=== PATIENT | female | born 1930 | race Caucasian/White ===

== ENCOUNTER 2017-01-08 10:24 | Emergency (ER) | payer OTHER ==
[~2017-01-08] VITALS: Ht 165.1 cm; Wt 65.8 kg
[~2017-01-08 10:24] MED LIST: ACETAMINOPHEN650 M5 PO; ACIDOPHILUS1 EAC3 PO; ADULT LOW DOSE81 MG PO; ADVIL100 M2; AUGMENTIN 500-1 EACH PO; AUGMENTIN 875875 MG PO; BISACODYL SUPP10 MG RECTAL; BISOPROLOL FUMAR5 MG PO; CEFTIN 250 MG250 MG PO; CELEXA 20 MG TA20 MG PO; CIPRO250 M1 PO; CIPROFLOXACIN250 M2 PO; CIPROFLOXACIN500 M1 PO; COLACE100 MG PO; ENJUVIA0.3 MG PO; FLOMAX PO; FLORANEX PACKET1 GM PO; HYDROCODON-ACE1 EAC7 PO; IBUPROFEN 200200 M1 PO; IBUPROFEN 400400 M2 PO; LIPITOR10 MG PO; LISINOPRIL20 MG PO; LYRICA 50 MG50 MG PO; LYRICA100 MG PO; MACROBID 100 M100 M1 PO; METOPROLOL TART25 MG PO; NORCO 5-325 TA1 EACH PO; PEPCID AC20 M1 PO; PEPCID20 MG PO; PREDNISONE 20 M20 MG PO; PREDNISONE 5 MG5 MG PO; PRINZIDE 20-121 EACH PO; PRINZIDE 20-251 EACH PO; SENNA LAXATIVE1 EACH PO; SENNA LAXATIVE8.6 MG PO; SENNA8.6 MG PO; TESSALON PERLE100 MG PO; TYLENOL325 MG PO; VALIUM2 MG PO; VALIUM5 MG PO; VENTOLIN HFA 1818 GM INH; ZESTORETIC 20-1 EAC3 PO; ZOFRAN ODT4 MG DISSOLVE
== END 2017-01-08 12:14 | disposition home or self-care (01) ==
LOC: ER 10:24
DX: S90.32XA Contusion of left foot, initial encounter (principal); S90.31XA Contusion of right foot, initial encounter; Z98.890 Other specified postprocedural states; Z90.710 Acquired absence of both cervix and uterus; Z86.73 Personal history of transient ischemic attack (TIA), and cerebral infarction without residual deficits; I11.0 Hypertensive heart disease with heart failure; I50.9 Heart failure, unspecified; K21.9 Gastro-esophageal reflux disease without esophagitis; E78.5 Hyperlipidemia, unspecified; Z96.651 Presence of right artificial knee joint; G89.29 Other chronic pain; F32.9 Major depressive disorder, single episode, unspecified; F41.9 Anxiety disorder, unspecified; Z88.2 Allergy status to sulfonamides; Z88.8 Allergy status to other drugs, medicaments and biological substances; F10.99 Alcohol use, unspecified with unspecified alcohol-induced disorder; W18.09XA Striking against other object with subsequent fall, initial encounter; Y93.89 Activity, other specified; Y92.89 Other specified places as the place of occurrence of the external cause; Y99.8 Other external cause status

== ENCOUNTER → 2017-05-26 | Outpatient (CLI) | payer OTHER | LOC: RAD 13:05 | DX: N20.2 Calculus of kidney with calculus of ureter (principal) ==

== ENCOUNTER → 2018-01-13 | Outpatient (CLI) | payer OTHER | LOC: RAD 10:58 | DX: N20.2 Calculus of kidney with calculus of ureter (principal); N28.89 Other specified disorders of kidney and ureter; M47.896 Other spondylosis, lumbar region; M41.9 Scoliosis, unspecified ==

== ENCOUNTER → 2018-02-10 | Outpatient (CLI) | payer OTHER | LOC: MRI 05:59 | DX: M48.05 Spinal stenosis, thoracolumbar region (principal); M77.8 Other enthesopathies, not elsewhere classified; N28.89 Other specified disorders of kidney and ureter ==

== ENCOUNTER → 2018-07-29 | Outpatient (CLI) | payer OTHER | LOC: CAT 11:55 | DX: K44.9 Diaphragmatic hernia without obstruction or gangrene (principal); N20.0 Calculus of kidney; K76.0 Fatty (change of) liver, not elsewhere classified; I31.3 Pericardial effusion (noninflammatory); K76.89 Other specified diseases of liver; N13.30 Unspecified hydronephrosis; N12 Tubulo-interstitial nephritis, not specified as acute or chronic ==

== ENCOUNTER 2019-02-02 05:38 | Inpatient (IN) | payer OTHER ==
[2019-01-26 11:43] LABS: HEMATOCRIT 29.4 % (37.0-47.0); HEMOGLOBIN 9.2 gm/dL (12.0-15.0); MCH 23.8 pg (26.0-34.0); MCHC 31.2 g/dL (28.0-37.0); MCV 76.1 fL (80.0-100.0); RBC 3.86 mil/uL (4.20-5.00); RDW 19.7 % (10.5-14.5); WBC 5.7 thou/uL (4.0-11.0)
[2019-01-26 11:47] LABS: URINE BILIRUBIN NEGATIVE (Negative); URINE BLOOD NEGATIVE (Negative); URINE CLARITY SL CLOUDY; URINE COLOR YELLOW; URINE GLUCOSE-RANDOM* NEGATIVE (Negative); URINE KETONES NEGATIVE (Negative); URINE PROTEIN (DIPSTICK) NEGATIVE (Negative); URINE UROBILINOGEN 0.2 E.U./dl (0.2-1.0)
[2019-01-26 11:49] LABS: URINE LEUKOCYTES-REFLEX 3+ (Negative); URINE NITRITE-REFLEX POSITIVE (Negative)
[2019-01-26 11:51] LABS: ALBUMIN 3.4 g/dL (3.4-5.0); CALCIUM 9.6 mg/dL (8.5-10.1); CREATININE 0.7 mg/dL (0.6-1.0); POTASSIUM 4.2 mmol/L (3.5-5.1)
[2019-01-26 11:56] LABS: PROTIME 10.5 Seconds (9.3-11.4)
[2019-01-26 12:11] LABS: SQUAMOUS >10 Many /LPF (0-3)
[2019-01-26 12:12] LABS: BACTERIA-REFLEX >30 Many /HPF (None Seen); CASTS None Seen /LPF (None Seen); CRYSTALS None Seen /LPF (None Seen); URINE RBC None Seen /HPF (0-2); URINE WBC-REFLEX >25 Many /HPF (0-5)
[~2019-02-02] VITALS: Ht 165.1 cm; Wt 57.6 kg
--- NOTE | ~2019-02-02 | O ---
[facility] [place] [address] [address] OPERATIVE REPORT Name: RAE DAMON Room #: 150-3 ADM IN M.R.#: [id number] Admission: 02/02/19 ������������������ Attend Phys: Joey Juan MD Discharge: ������������������ Date of : 31 Report #: [id number] THIS REPORT FOR: //name// CC: Tremayne Juan DATE OF SERVICE: 02/02/2019 PREOPERATIVE DIAGNOSIS: Left knee osteoarthritis. POSTOPERATIVE DIAGNOSIS: Left knee osteoarthritis. PROCEDURE: Left total knee arthroplasty using NAVIO robotic fire assistant. SURGEON: Joey Juan MD. FLASK CARRIER: Holly Stout PA-C. INDICATIONS FOR FLASK CARRIER: Throughout the case extensive retraction and manipulation of the knee was required. This was afforded to me by my fire assistant. ANESTHESIA: LMA with an adductor canal block. IMPLANTS: [employer]hew size 6 narrow Legion cobalt chrome posterior stabilized femur, a size 4 tibia, size 11 highly constrained polyethylene, and size 32 patella. TOURNIQUET TIME: 61 minutes. ESTIMATED BLOOD LOSS: 25 mL. COMPLICATIONS: None. SPECIMENS: None. CONDITION UPON LEAVING THE OPERATING ROOM: Stable. INDICATION FOR PROCEDURE: The patient is an 89-year-old from female with severe left knee osteoarthritis. She had failed conservative measures for this and after discussion with her, she elected for left total knee arthroplasty. DESCRIPTION OF PROCEDURE: Risks, benefits, alternatives, complications were discussed in detail with the patient including but not limited to risk of anesthesia, risk of damage to nerves, arteries, blood vessels; risk for infection, bleeding, risk for continued knee pain, need for reoperation. Informed consent was obtained from the patient. Left knee was appropriately [facility] [address] [place] [address] OPERATIVE REPORT Name: RAE DAMON MARCH Room #: 150-3 ADM IN M.R.#: [id number] Admission: 02/02/19 ������������������ Attend Phys: Joey Juan MD Discharge: ������������������ Date of : 31 Report #: [id number] marked in the preoperative holding area. IV Ancef was given for preoperative antibiotics. She was brought to the operating room and placed in the supine position on the operating room table. LMA anesthesia was induced without complication. Tourniquet was placed on the left thigh. Left lower extremity was prepped and draped in normal sterile fashion. Timeout was performed properly identifying the patient and procedure as well as instrumentation. All in the operating room were in agreement. Left lower extremity was exsanguinated, tourniquet was inflated. Tourniquet time was 61 minutes. Standard midline approach to knee was made with 10 blade through the skin. Dissection was taken down sharply to the fascia and deep flaps were developed medially and laterally. A fresh 10 blade was used to make a medial parapatellar arthrotomy and there was severe tricompartmental osteoarthritis. ACL and PCL were removed sharply. Reference pins were placed in the femur and the tibia for the NAVIO system and the knee was digitally mapped using the [employer] robotic system. We sized the size 6 femur with a size 4 tibia and a size 11 polyethylene. After acceptance of the intraoperative plan, the distal femoral cut was made with a NAVIO bur. The 4-in-1 cutting block for a size 6 femur was placed and anterior, posterior and chamfer cuts were made. Knee was then hyperflexed and remainder of the meniscus were removed with Bovie cautery. Tibial resection guide was pinned in place using the NAVIO system and the tibial resection was made. Flexion and extension gaps were then checked and found to have good balance in flexion and extension both medially and laterally. Tibia was sized and found to be a size 4. The size 4 tibial trial was placed, pinned and punched. A size 6 femoral trial was placed and the box cut was made. This was then trialed with a size 11 polyethylene. Knee was taken through range of motion, found to be stable, found to have about 4 mm of laxity in full extension medially that did tighten up with flexion. It was felt that we could make up for this with a highly constrained insert. A 9 mm was taken off the posterior surface of the patella and a size 32 patellar trial button was placed. Knee was taken through range of motion, found to be stable, found to have good patellar tracking. Trial components were then removed. Bony ends were thoroughly irrigated with normal saline. A final size 4 tibia, size 6 Legion narrow cobalt chrome posterior stabilized femur, and a size 32 patella were cemented in place using standard cementation techniques. While the cement cured, a periarticular injection consisting of morphine, ropivacaine, epinephrine and Toradol was placed in the joint capsule. After the cement cured, tourniquet was deflated. Hemostasis was obtained with Bovie cautery. Final size 11 highly constrained polyethylene was placed. A gram of vancomycin was placed deep in the joint. Fascia was closed with 0 Vicryl, skin was closed with 2-0 Vicryl, 3-0 Monocryl, Dermabond and a YESICA dressing was applied. The patient tolerated this procedure well and went to the recovery room under the care of Anesthesia postoperatively. ��������������������������������������������� ���������������������������������������� By: ��������������������������������������������� 1434 1520 Joey Juan MD /pro
[~2019-02-02 05:38] MED LIST changes: +WOMEN'S 50 PLU1 EAC1 PO
[2019-02-02 10:42] VITALS: BP 158/57
[2019-02-02 16:11] VITALS: BP 135/46
[2019-02-02 17:00] VITALS: BP 140/58
--- NOTE | 2019-02-02 18:16 | NUR ---
Pt arrived to floor from recovery room at 1600 in stable condition.Pop assessment completed.Pt was drowsy but arousable.Ivf initiated and tolerated. Spouse at bs at present.Will continue to monitor.
[2019-02-02 21:50] VITALS: BP 122/51
[2019-02-03 05:00] VITALS: BP 121/57
[2019-02-03 05:12] LABS: HEMATOCRIT 24.4 % (37.0-47.0); HEMOGLOBIN 7.5 gm/dL (12.0-15.0); MCH 23.4 pg (26.0-34.0); MCHC 30.6 g/dL (28.0-37.0); MCV 76.6 fL (80.0-100.0); RBC 3.18 mil/uL (4.20-5.00); RDW 19.6 % (10.5-14.5); WBC 15.2 thou/uL (4.0-11.0)
--- NOTE | 2019-02-03 07:27 | NUR ---
PT ALERT AND ORIENTED.USING BEDPAN.VSS. ATE SOME JELLO. AFEBRILE.L KNEE WITH YESICA DRSG INTACT.
[2019-02-03 07:46] VITALS: BP 135/56
--- NOTE | 2019-02-03 12:47 | NUR ---
ASSESSMENT-PT LIVES AT HOME WITH HER SPOUSE. SHE PLAN TO GO TO [facility] FOR A SHORT REHAB STAY THEN DO OUTPT THERAPY AT [address]. SHE WILL FIND OUT THE NAME OF THE OUTPT FACILITY AND LET BOP KNOW SO THEY CAN ARANGE FOR HER. PT HAS BEEN USING A WC TO GET AROUND AND REQUIRES ASSIST TO TRANSFER TO AND FROM. PT HAS HAD HH THRU [facility] IN THE PAST AND SHE SAYS SHE DOES NOT WANT TO USE THEM AGAIN. PT HAS A CHAIR LIFT TO GET IN THE HOME THEN EVERYTHING ON ONE LEVEL. PT SAYS THEY ARE PLANNING ON PUTTING GRAB BARS IN. FOLLOWING TO ASSIST WITH DC PLANNING. SPOUSE AT BEDSIDE.
--- NOTE | 2019-02-03 14:37 | NUR ---
FAXED REFERRAL TO [facility] SPOKE WITH CHRIS IN ADM. SHE RECEIVED REFERRAL AND CAN ACCEPT PT. AT DC. THEY WILL BE ABLE TO ACCEPT PT. AFTER ONLY 2 MN SINCE SHE IS A BUNDLE PT. ANTICIPATE DC SUNDAY 02/04 OR SAT. 02/05. DCP TO FOLLOW.
--- NOTE | 2019-02-03 15:18 | NUR ---
Assessment completed.vss.Pt in bed for all meals.Good appetite.Dr Juan oil refinery process technician was here at noon.No new order noted.Pt in and out of bed for acivities with therapist.Medicated as needed for pain.Will continue to monitor.
[2019-02-03 15:42] VITALS: BP 113/42
[2019-02-03 20:05] VITALS: BP 130/55
--- NOTE | 2019-02-04 01:25 | NUR ---
L KNEE WITH YESICA DRSG INTACT. TEDS AND SCDS IN PLACE. PT C/O HEADACHE AND L KNEE PAIN, GIVEN HYDROCODON. PT MOSTLY JUST WANTS TO BE LEFT ALONE TO SLEEP.SHE HOPES TO DO BETTER WITH THERAPY TOMORROW.
[2019-02-04 03:00] VITALS: BP 128/61
[2019-02-04 04:56] LABS: RBC 2.87 mil/uL (4.20-5.00)
[2019-02-04 04:57] LABS: HEMATOCRIT 21.9 % (37.0-47.0); MCH 24.3 pg (26.0-34.0); MCHC 31.7 g/dL (28.0-37.0); MCV 76.4 fL (80.0-100.0); RDW 19.7 % (10.5-14.5); WBC 6.3 thou/uL (4.0-11.0)
[2019-02-04 08:01] VITALS: BP 143/54
--- NOTE | 2019-02-04 08:07 | NUR ---
ASSESMENT COMPLETED. VSS. A/O. ANXIOUS. C/O PAIN- MEDS GIVEN ORDERED. NO NOTED SOA. NO NV. VOIDS PER BEDPAN. TURNS SELF WELL IN BED. YESICA CDI. BED ALARM ON. AT BEDSIDE. WILL CONT. TO MONITOR.
[2019-02-04] MEDS ORDERED: TRI-BUFFERED A325 M1 PO (12:14)
[2019-02-04] MEDS ORDERED: NEURONTIN 300300 M1 PO (12:14)
--- NOTE | 2019-02-04 12:34 | NUR ---
PT. [facility] FAX DC ORDERS TO [phone] AND CALL REPORT TO [phone] AND ASK FOR STUART SHE WILL SET UP TRANSPORT ALSO.
--- NOTE | 2019-02-04 12:56 | NUR ---
Following for d/c planning needs. Pt to be d/c on Thursday to [facility]. Pt and spouse in agreement with plan. search planner updated facility. Patient choice letter signed and placed on chart.
[2019-02-04 15:38] VITALS: BP 142/61
--- NOTE | 2019-02-04 18:29 | NUR ---
NO CHANGE SINCE AM ASSESMENT. PLANS TO DC [facility] TO SNF.
[2019-02-04 19:36] VITALS: BP 143/47
--- NOTE | 2019-02-05 01:38 | NUR ---
PT IS ALERT,SOMETIMES GETS CONFUSED AND FORGETFUL.ASKING FOR BEDPAN-VOIDING OKAY. YESICA DRSG INTACT TO L KNEE.PT C/O-GETTING HYDROCODONE.PLAN FOR D/C TO REHAB TODAY.
[2019-02-05 04:27] LABS: HEMOGLOBIN 6.9 gm/dL (12.0-15.0); MCH 23.9 pg (26.0-34.0)
[2019-02-05 04:29] LABS: HEMATOCRIT 21.9 % (37.0-47.0); MCHC 31.6 g/dL (28.0-37.0); MCV 75.8 fL (80.0-100.0); RBC 2.9 mil/uL (4.20-5.00); RDW 19.4 % (10.5-14.5); WBC 6.9 thou/uL (4.0-11.0)
[2019-02-05 05:09] VITALS: BP 147/47
[2019-02-05] MEDS ORDERED: IRON325 PO (08:17)
--- NOTE | 2019-02-05 08:18 | NUR ---
ASSESMENT COMPLETED. VSS. A/O. FORGETFUL. PAIN MANAGED BY MEDS ORDERED. NO NOTED SOA. NO NV. PT RESTING IN BED. NOTED HGB. DR. UPTON HERE- ORDERS FOR IRON OBTAINED. PT TO DC TO SNF THIS AFTERNOON. WILL CONT. TO MONITOR.
[2019-02-05 08:26] VITALS: BP 147/54
--- NOTE | 2019-02-05 13:06 | NUR ---
REPORT CALLED IN TO FACILITY. PT EXPECTED TO DC AT 1600.
== END 2019-02-05 18:00 | DRG 470 ==
LOC: TBA 05:38 → 4E 05:38 → PRE 05:48 → 4E 16:07
PROVIDERS: ADMIT Orthopaedic Surgery
DX: M17.12 Unilateral primary osteoarthritis, left knee (principal); Z88.6 Allergy status to analgesic agent; Z88.2 Allergy status to sulfonamides; Z88.8 Allergy status to other drugs, medicaments and biological substances; Z79.82 Long term (current) use of aspirin; Z79.899 Other long term (current) drug therapy
CPT/HCPCS: 10783; 50010; 50101; 50415; 50954; 51130; 51225; 51771; 53000; 53078; 53364; 54118; 56527; 56528; 57095; 57103; 57110; 57127; 57180; 62110; 62900; 70005

== ENCOUNTER → 2019-05-24 | Outpatient (CLI) | payer OTHER ==
[~2019-05-24] MED LIST changes: +IRON325 PO; +NEURONTIN 300300 M1 PO; +TRI-BUFFERED A325 M1 PO
[2019-05-24 11:27] LABS: HEMATOCRIT 29.1 % (37.0-47.0); HEMOGLOBIN 9.1 gm/dL (12.0-15.0); MCH 22.5 pg (26.0-34.0); MCHC 31.4 g/dL (28.0-37.0); MCV 71.6 fL (80.0-100.0); RBC 4.07 mil/uL (4.20-5.00); RDW 21.2 % (10.5-14.5); WBC 4.5 thou/uL (4.0-11.0)
[2019-05-24 11:44] LABS: ALBUMIN 3.4 g/dL (3.4-5.0); CALCIUM 9.6 mg/dL (8.5-10.1); CREATININE 0.7 mg/dL (0.6-1.0); POTASSIUM 3.9 mmol/L (3.5-5.1); TOTAL BILIRUBIN 0.7 mg/dL (<0.1-1.0); TOTAL PROTEIN 6.3 g/dL (6.4-8.2)
== END ==
LOC: LAB 10:37
PROVIDERS: Internal Medicine Geriatric Medicine
DX: M25.562 Pain in left knee (principal); Z96.652 Presence of left artificial knee joint

== ENCOUNTER 2019-09-18 00:42 | Emergency (ER) | payer OTHER ==
[~2019-09-18] VITALS: Ht 165.1 cm; Wt 65.8 kg
[2019-09-18] MEDS ORDERED: HYDROCODON-ACE1 EAC7 PO (00:44)
[2019-09-18] MEDS ORDERED: LIPITOR 40 MG T40 M1 PO (00:44)
[2019-09-18] MEDS ORDERED: NORVASC5 MG PO (00:45)
[2019-09-18 03:35] LABS: HEMOGLOBIN 6.5 gm/dL (12.0-15.0); WBC 3.6 thou/uL (4.0-11.0)
[2019-09-18 03:36] LABS: HEMATOCRIT 22.4 % (37.0-47.0); MCH 20.9 pg (26.0-34.0); MCV 72.1 fL (80.0-100.0); PLATELET COUNT 333 thou/uL (150-400); RBC 3.11 mil/uL (4.20-5.00); RDW 19.3 % (10.5-14.5)
[2019-09-18 03:39] LABS: CALCIUM 9.1 mg/dL (8.5-10.1); CREATININE 0.8 mg/dL (0.6-1.0); POTASSIUM 3.7 mmol/L (3.5-5.1)
[2019-09-18 04:09] LABS: ABSOLUTE NEUTROPHILS 1.9 thou/uL (1.4-8.2); ANISOCYTOSIS 2+; HYPOCHROMASIA 3+; METAMYELOCYTES 1 %; MICROCYTES 1+
[2019-09-18 04:10] LABS: LARGE PLATELETS OCCASIONAL
[2019-09-18 05:57] LABS: URINE BILIRUBIN NEGATIVE (Negative); URINE BLOOD NEGATIVE (Negative); URINE CLARITY CLEAR; URINE COLOR YELLOW; URINE GLUCOSE-RANDOM* NEGATIVE (Negative); URINE KETONES TRACE (Negative); URINE NITRITE-REFLEX NEGATIVE (Negative); URINE PROTEIN (DIPSTICK) NEGATIVE (Negative); URINE UROBILINOGEN 0.2 E.U./dl (0.2-1.0)
[2019-09-18 06:00] LABS: URINE LEUKOCYTES-REFLEX 2+ (Negative)
[2019-09-18 06:29] LABS: CASTS None Seen /LPF (None Seen); SQUAMOUS >10 Many /LPF (0-3); URINE WBC-REFLEX 6-15 Few /HPF (0-5)
[2019-09-18 06:30] LABS: AMORPHOUS URATES Few /LPF (None Seen); BACTERIA-REFLEX >30 Many /HPF (None Seen); CALCIUM OXALATE 4-10 Moderate /LPF (None Seen); URINE RBC None Seen /HPF (0-2)
[2019-09-18 08:24] VITALS: BP 150/51
== END 2019-09-18 07:40 | disposition home or self-care (01) ==
LOC: ER 00:42
PROVIDERS: Emergency Medicine
DX: S01.81XA Laceration without foreign body of other part of head, initial encounter (principal); I11.0 Hypertensive heart disease with heart failure; I50.9 Heart failure, unspecified; K21.9 Gastro-esophageal reflux disease without esophagitis; Z88.2 Allergy status to sulfonamides; Z88.5 Allergy status to narcotic agent; Z88.8 Allergy status to other drugs, medicaments and biological substances; Z79.899 Other long term (current) drug therapy; Z90.89 Acquired absence of other organs; Z90.710 Acquired absence of both cervix and uterus; Z98.890 Other specified postprocedural states; Z86.73 Personal history of transient ischemic attack (TIA), and cerebral infarction without residual deficits; Z96.651 Presence of right artificial knee joint; Z87.442 Personal history of urinary calculi; W06.XXXA Fall from bed, initial encounter; Y93.89 Activity, other specified; Y92.89 Other specified places as the place of occurrence of the external cause; Y99.9 Unspecified external cause status

== ENCOUNTER 2019-09-22 17:23 | Inpatient (IN) | payer OTHER ==
[~2019-09-22] VITALS: Ht 165.1 cm; Wt 68.5 kg
[~2019-09-22 17:23] MED LIST changes: +LIPITOR 40 MG T40 M1 PO; +NORVASC5 MG PO
[2019-09-22 18:49] VITALS: BP 143/62
[2019-09-22 19:26] LABS: HEMOGLOBIN 6.4 gm/dL (12.0-15.0)
[2019-09-22 21:33] VITALS: BP 160/58; BP 166/65
[2019-09-22 22:21] VITALS: BP 141/58
[2019-09-22 23:22] VITALS: BP 182/81
[2019-09-23 01:00] VITALS: BP 162/70; BP 162/74; BP 170/81
[2019-09-23 08:50] VITALS: BP 174/78
[2019-09-23 09:10] LABS: HEMATOCRIT 27.5 % (37.0-47.0)
[2019-09-23 09:17] LABS: HEMOGLOBIN 8.4 gm/dL (12.0-15.0)
[2019-09-23 15:42] VITALS: BP 151/81
[2019-09-23 16:23] LABS: HEMATOCRIT 28.9 % (37.0-47.0); HEMOGLOBIN 8.9 gm/dL (12.0-15.0); MCH 23.3 pg (26.0-34.0); MCHC 30.9 g/dL (28.0-37.0); MCV 75.3 fL (80.0-100.0); RBC 3.84 mil/uL (4.20-5.00); RDW 21.6 % (10.5-14.5); WBC 5.6 thou/uL (4.0-11.0)
[2019-09-23 16:42] LABS: % SATURATION 7 % (20-39); IRON 25 ug/dL (50-170); TIBC 350 ug/dL (250-450)
[2019-09-23 20:22] VITALS: BP 165/76
[2019-09-24 07:00] VITALS: BP 161/76
--- NOTE | 2019-09-24 08:03 | H ---
[facility] [place] [address] HISTORY AND PHYSICAL Name: RAE DAMON Room #: 403-P ADM IN M.R.#: [id number] Admission: 09/22/19 Attend Phys: Judi Barr Discharge: Date of : 31 Report #: [id number] THIS REPORT FOR: //name// CC: Tremayne Patino DATE OF SERVICE: 09/22/2019 CHIEF COMPLAINT: Weakness. HISTORY OF PRESENT ILLNESS: The patient is an 89-year-old female who was admitted from the office for evaluation of anemia. She apparently slid and fell out of her bed earlier this week and sustained a laceration to her lower lip. She was seen in the Emergency Room on 09/18/2019. She was discharged home. She was noted to have a hemoglobin of 6.5 at that time. She had a followup in the office yesterday and was admitted for evaluation of symptomatic anemia. PAST MEDICAL HISTORY: Osteoarthritis. She had a left total knee replacement in January of this year, hypertension. PAST SURGICAL HISTORY: As above. FAMILY HISTORY: Noncontributory. SOCIAL HISTORY: She is and lives with her at home. No chronic alcohol or tobacco use. ALLERGIES: SULFA, OXYCODONE, ATROPINE, DIPHENOXYLATE. MEDICATIONS: Lipitor, Norvasc, diazepam, Colace, Pepcid. REVIEW OF SYSTEMS: She denies headache, chest pain, shortness of breath, abdominal pain, nausea, vomiting, diarrhea, constipation, dysuria, syncope. She complains of trouble sleeping. OBJECTIVE: VITAL SIGNS: Temperature 36.8, pulse 56, respirations 18, blood pressure 174/78, O2 sat 96% on room air. GENERAL: She is awake and alert, in no distress. HEAD AND NECK: Unremarkable. LUNGS: Clear. HEART: Regular. ABDOMEN: Soft, normoactive bowel sounds. EXTREMITIES: No edema. NEUROLOGIC: Motor strength 4/5 throughout. LABORATORY DATA: Presenting hemoglobin was 6.4, post two-unit blood [facility] [address] [place] [address] HISTORY AND PHYSICAL Name: RAE DAMON Room #: 403-P ADM IN M.R.#: [id number] Admission: 09/22/19 Attend Phys: Judi Barr Discharge: Date of : 31 Report #: [id number] transfusion, now 8.4. ASSESSMENT: 1. Symptomatic microcytic anemia. 2. Hypertension. 3. Osteoarthritis of the knees. 4. History of left knee replacement in January of this year. PLAN: She has already received 2 units. Additional iron studies will be ordered and she may benefit from some IV iron infusion, hemoccult stool and I will ask the GI service to see her for consideration of endoscopy. <ELECTRONICALLY SIGNED> By: Anthony Chang MD 09/24/19 0803 1144 1156 Anthony Chang MD /nt
[2019-09-24 08:59] LABS: HEMATOCRIT 28.7 % (37.0-47.0); HEMOGLOBIN 8.9 gm/dL (12.0-15.0); MCH 23.3 pg (26.0-34.0); MCV 75.1 fL (80.0-100.0); RBC 3.82 mil/uL (4.20-5.00); RDW 21.4 % (10.5-14.5); WBC 4.7 thou/uL (4.0-11.0)
[2019-09-24 09:14] LABS: CALCIUM 9.1 mg/dL (8.5-10.1); CREATININE 0.7 mg/dL (0.6-1.0); POTASSIUM 3.5 mmol/L (3.5-5.1)
[2019-09-24 16:00] VITALS: BP 191/90
[2019-09-24 20:20] VITALS: BP 163/63
[2019-09-25 20:04] VITALS: BP 142/66
[2019-09-26] VITALS (8 sets, daily range): BP systolic 124–190; BP diastolic 56–81
[2019-09-26 05:48] LABS: HEMATOCRIT 29.4 % (37.0-47.0); HEMOGLOBIN 9.1 gm/dL (12.0-15.0); MCHC 30.8 g/dL (28.0-37.0); MCV 74.9 fL (80.0-100.0); RBC 3.93 mil/uL (4.20-5.00); RDW 21.8 % (10.5-14.5); WBC 5.7 thou/uL (4.0-11.0)
[2019-09-27 09:36] VITALS: BP 132/76
[2019-09-27] MEDS ORDERED: PANTOPRAZOLE SO40 M1 PO (12:32)
[2019-09-27 13:16] VITALS: BP 132/76
--- NOTE | 2019-09-27 13:58 | P ---
[facility] [place] [address] PROCEDURE REPORT Name: RAE DAMON Room #: 403-P ADM IN M.R.#: [id number] Admission: 09/22/19 Attend Phys: Judi Barr Discharge: Date of : 31 Report #: [id number] THIS REPORT FOR: //name// CC: Jose G Patino DATE OF SERVICE: 09/26/2019 PROCEDURE PERFORMED: Colonoscopy with biopsies. HISTORY OF PRESENT ILLNESS: The patient is an 89-year-old female with recent fall at home, was noted to be significantly anemic with a hemoglobin in the 6 range. She is now undergone transfusion. She does have a history of NSAID use. Upper endoscopy was just performed by myself, which showed several gastric ulcers, nonbleeding duodenal ulcers as well as esophagitis. No evidence of blood. Plan is for colonoscopy. DESCRIPTION OF PROCEDURE: The risks and benefits of the procedure were explained to the patient, those risks including but not limited to bleeding, perforation, the risk of sedation. She understood these risks and gave informed consent. Sedation was given using propofol per anesthesia. Next, a digital rectal exam was initially performed, which was normal. Next, using a standard Olympus colonoscope, the scope was placed in the patient's anus and advanced under direct vision to the cecum. The overall prep was good. The cecum and ileocecal valve were normal in appearance. In the proximal ascending colon, a 5 mm sessile polyp was noted. This was removed with cold forceps, otherwise normal. The transverse and descending colon were normal. Multiple diverticula were noted in the sigmoid colon, no evidence of inflammation or bleeding. The rectal mucosa was normal. On retroflexion, small nonbleeding internal hemorrhoids were noted. The scope was then withdrawn and the procedure terminated. The patient tolerated the procedure well. IMPRESSION: 1. Small colonic polyp. 2. Sigmoid diverticulosis. 3. Internal hemorrhoids. 4. Otherwise, normal colonoscopy. RECOMMENDATIONS: 1. Await biopsy results. 2. The patient's anemia may be secondary to gastric and duodenal ulcers as described above. Would recommend daily PPI therapy and continue to monitor hemoglobin. There was no evidence of active bleeding on EGD or colonoscopy today. Okay to discharge to home. [facility] [address] [place] [address] PROCEDURE REPORT Name: RAE DAMON Room #: 403-P ADM IN M.R.#: [id number] Admission: 09/22/19 Attend Phys: Judi Barr Discharge: Date of : 31 Report #: [id number] Thank you for allowing me to participate in her care. <ELECTRONICALLY SIGNED> By: Pradip Jauregui MD 09/27/19 1358 1314 [id number] Pradip Jauregui MD /nt
--- NOTE | 2019-09-27 13:58 | P ---
[facility] [place] [address] PROCEDURE REPORT Name: NELSONRAE Room #: 403-P ADM IN M.R.#: [id number] Admission: 09/22/19 Attend Phys: Judi Barr Discharge: Date of : 31 Report #: [id number] THIS REPORT FOR: //name// CC: Jose G Patino DATE OF SERVICE: 09/26/2019 PROCEDURE PERFORMED: Upper endoscopy with biopsies. HISTORY OF PRESENT ILLNESS: The patient is an 89-year-old female with a history of anemia who was admitted for a fall at home, who was noted to have hemoglobin of 6.5, been feeling weak in general recently. She does take NSAIDs. Denies any melena or bright red blood per rectum. Plan is for EGD and colonoscopy. She was transfused. Her hemoglobin now is 9.1. DESCRIPTION OF PROCEDURE: The risks and benefits of the procedure were explained to the patient, those risks including, but not limited to bleeding, perforation and the risk of sedation. She understood these risks and gave informed consent. Sedation was given using propofol per anesthesia. Next, using a standard Olympus upper endoscope, the scope was placed in the patient's mouth and advanced under direct vision through the esophagus, stomach and into the second portion of the duodenum. The upper and mid esophagus was normal in appearance. In the distal esophagus at the GE junction, grade B erosive esophagitis was noted. No evidence of bleeding. Upon entering the stomach, a large hiatal hernia was noted. There were several gastric erosions and a few small clean white based ulcers within the hiatal hernia in the gastric body. No evidence of bleeding. Biopsies were obtained. A mild gastritis was noted in the antrum. The pylorus was normal and patent. In the duodenal bulb, two small clean white based ulcers were noted. Also, no evidence of bleeding. The first and second portion of the duodenum were normal. Biopsies were obtained to rule out celiac sprue. The scope was then withdrawn and the procedure terminated. The patient tolerated the procedure well. IMPRESSION: 1. Several gastric erosions and ulcers. No active bleeding at this time. Possible source of recent anemia. 2. Hiatal hernia. 3. Grade B erosive esophagitis. 4. Duodenal ulcers as described above. RECOMMENDATIONS: 1. Await biopsy results. 2. Recommend continuing to hold NSAIDs and will switch from Pepcid to Protonix. [facility] [address] [place] [address] PROCEDURE REPORT Name: NELSONRAE Room #: 403-P ADM IN M.R.#: [id number] Admission: 09/22/19 Attend Phys: Judi Barr Discharge: Date of : 31 Report #: [id number] Thank you for allowing me to participate in her care. <ELECTRONICALLY SIGNED> By: Pradip Jauregui MD 09/27/19 1358 1249 [id number] Pradip Jauregui MD /pro
--- NOTE | 2019-09-29 10:00 | D ---
[facility] [place] [address] DISCHARGE SUMMARY Name: RAE DAMON Room #: 403-P [facility] IN M.R.#: [id number] Admission: 09/22/19 Attend Phys: Judi Barr Discharge: 09/27/19 Date of : 31 Report #: [id number] THIS REPORT FOR: //name// CC: Tremayne Patino FINAL DIAGNOSES: 1. Microcytic anemia. 2. Gastric ulcer. 3. Hypertension. PROCEDURES: 1. Two unit blood transfusion. 2. EGD. 3. Colonoscopy. HOSPITAL COURSE: The patient was admitted with general weakness and signs of symptomatic anemia with hemoglobin around 6. She received 2 units of blood along with iron infusions. GI service assessed her and scheduled and performed an EGD and colonoscopy. Please see those dictated reports. Generally, she was found to have nonbleeding gastric ulcers, which are thought to be the source of her microcytic anemia. The plan was to switch her to proton pump inhibitor. PHYSICAL EXAMINATION: GENERAL: On the day of discharge, she was awake and alert. VITAL SIGNS: Stable vital signs. LUNGS: Clear. HEART: Regular. ABDOMEN: Soft, normoactive bowel sounds. EXTREMITIES: No edema. DISPOSITION: She is discharged to home with diet and activity as tolerated. No aspirin or NSAID products. She will switch from Pepcid to Protonix 40 mg a day for [address] Patino in a couple of weeks. She has a few sutures in the lower lip due to a fall at home, sutured in the ER, which will be removed in the office. <ELECTRONICALLY SIGNED> By: Anthony Chang MD 09/29/19 1000 1234 1253 Anthony Chang MD /nt
--- NOTE | 2019-09-29 10:07 | PATH ---
[facility] [place] [address] [address] [place] [address] PATHOLOGY RPT PROCEDURE Name: LILIAN DAMON Room #: 403-P DIS IN M.R.#: [id number] Admission: 09/22/19 Date of : 31 Discharge: 09/27/19 Report #: [id number] Path Case #: [id number] [facility] Accession Number: [id number] . 01 Material submitted: . PART A: duodenum - BIOPSY DUODENUM R/O CELIAC SPRUE, HX ANEMIA PART B: stomach - BIOPSY GASTRITIS R/O H PYLORI PART C: colon - BIOPSY POLYP AT ASCENDING COLON. Modifiers: ascending . 01 Clinical history: . Pre-op diagnosis: Anemia Post-op diagnosis: Gastric ulcers, duodenal ulcers, hiatal hernia, esophagitis, colon polyp, diverticulosis A. R/O celiac sprue, history of anemia B. R/O H. pylori . 02 Diagnosis: A. Small bowel mucosa, duodenum, endoscopic biopsy: - No significant diagnostic abnormalities present. - Negative for villous blunting or increase in intraepithelial lymphocytes. . B. Gastric mucosa, gastritis rule out H. pylori, endoscopic biopsy: - Mild chronic inflammation. - Negative for intestinal metaplasia or atrophy. - Negative for Helicobacter pylori (properly controlled immunohistochemical stain performed). . C. Polyp, ascending colon, endoscopic biopsy: - Tubular adenoma. - Negative for high grade dysplasia. (IUV/db; 09/28/2019) LBQ 09/28/2019 1516 Local . 02 Electronically signed: . Mona Abrams MD, Pathologist NPI- [id number] . 01 Gross description: . A. The specimen is received in formalin, labeled "Lilian Damon, biopsy duodenum, R/O celiac sprue, history of anemia". Received are three segments of pale zhong soft tissue ranging in size from 0.3 to 0.5 cm in maximum dimensions. The specimen is submitted entirely in cassette A1. . B. The specimen is received in formalin, labeled "Lilian Damon, biopsy gastritis, R/O H. pylori". Received are three segments of pale zhong soft tissue ranging in size from 0.3 to 0.6 cm in maximum dimensions. The [address] [address] PATHOLOGY RPT PROCEDURE Name: NELSONLILIAN Room #: 403-P DIS IN M.R.#: [id number] Admission: 09/22/19 Date of : 31 Discharge: 09/27/19 Report #: [id number] Path Case #: [id number] specimen is submitted entirely in cassette B1. . C. The specimen is received in formalin, labeled "Lilian Damon, biopsy polyp at ascending colon". Received are three segments of pale zhong soft tissue ranging in size from 0.2 to 0.3 cm in maximum dimensions. The specimen is submitted entirely in cassette C1. (CAA; 09/27/2019) QAC/QAC 09/27/2019 0955 Local . 02 Pathologist provided ICD-10: K29.50, D12.2 . 02 CPT . 323829, 713572, 160917, [id number] Specimen Comment: A courtesy copy of this report has been sent to [phone], [phone] Specimen Comment: [id number] Specimen Comment: Report sent to and Specimen Comment: A duplicate report has been generated due to demographic updates. Performed at: [address] [facility], [place], [place] [id number] MD Demarcus Hi MD Phone: [phone] Performed at: [address] [id number] MD Mona Abrams MD Phone: [phone]
== END 2019-09-27 13:45 | disposition home or self-care (01) | DRG 380 ==
LOC: 4W 17:23 → 4N 09-23 19:09 → ENTRNSPT 09-27 13:24 → EDTRNSPTSTS 09-27 13:27 → 4N 09-27 13:45
PROVIDERS: Internal Medicine Geriatric Medicine; Nurse Practitioner; ADMIT Internal Medicine
PROC: 30233N1 Transfusion of Nonautologous Red Blood Cells into Peripheral Vein, Percutaneous Approach (ICD-10-PCS; principal; 2019-09-22)
PROC: 0DB68ZX Excision of Stomach, Via Natural or Artificial Opening Endoscopic, Diagnostic (ICD-10-PCS; 2019-09-26)
PROC: 0DB98ZX Excision of Duodenum, Via Natural or Artificial Opening Endoscopic, Diagnostic (ICD-10-PCS; 2019-09-26)
PROC: 0DBK8ZZ Excision of Ascending Colon, Via Natural or Artificial Opening Endoscopic (ICD-10-PCS; 2019-09-26)
DX: K22.10 Ulcer of esophagus without bleeding (principal); G93.41 Metabolic encephalopathy; N39.0 Urinary tract infection, site not specified; K25.9 Gastric ulcer, unspecified as acute or chronic, without hemorrhage or perforation; D50.9 Iron deficiency anemia, unspecified; K26.9 Duodenal ulcer, unspecified as acute or chronic, without hemorrhage or perforation; I10 Essential (primary) hypertension; Z96.652 Presence of left artificial knee joint; M17.0 Bilateral primary osteoarthritis of knee; K44.9 Diaphragmatic hernia without obstruction or gangrene; K57.30 Diverticulosis of large intestine without perforation or abscess without bleeding; K64.8 Other hemorrhoids; K63.5 Polyp of colon; B96.20 Unspecified Escherichia coli [E. coli] as the cause of diseases classified elsewhere; Z72.89 Other problems related to lifestyle; Z80.0 Family history of malignant neoplasm of digestive organs; Z88.6 Allergy status to analgesic agent; Z88.2 Allergy status to sulfonamides; Z88.8 Allergy status to other drugs, medicaments and biological substances; Z79.1 Long term (current) use of non-steroidal anti-inflammatories (NSAID); Z90.710 Acquired absence of both cervix and uterus
CPT/HCPCS: 10047; 10790; 62110; 62900; 70005

== ENCOUNTER 2019-09-29 16:04 | Inpatient (IN) | payer OTHER ==
[~2019-09-29] VITALS: Ht 165.1 cm; Wt 63.5 kg
--- NOTE | ~2019-09-29 | H ---
[facility] [place] [address] [address] HISTORY AND PHYSICAL Name: RAE DAMON Room #: 404-P ADM IN M.R.#: [id number] Admission: 09/29/19 Attend Phys: Judi Barr Discharge: Date of : 32 Report #: [id number] THIS REPORT FOR: //name// CC: Tremayne Patino DATE OF SERVICE: 09/29/2019 CHIEF COMPLAINT: Pain and swelling in the right arm. HISTORY OF PRESENT ILLNESS: The patient is an 89-year-old female admitted to the Emergency Room with increasing pain and swelling of the right arm. She was hospitalized about a week ago for symptomatic anemia. She received 2-unit blood transfusion along with iron infusions and underwent EGD and colonoscopy Thursday and then was discharged home on Thursday. At home she noted increasing pain, swelling and redness of the right forearm. She came to the Emergency Room and diagnosed with cellulitis. Doppler study is negative for DVT. PAST MEDICAL HISTORY: Hypertension, degenerative arthritis. She had a right knee replacement in January of this year, microcytic anemia due to gastrointestinal bleed from gastric ulcer. PAST SURGICAL HISTORY: As above. FAMILY HISTORY: Noncontributory. SOCIAL HISTORY: She lives at home with her . No chronic alcohol or tobacco use. ALLERGIES: SULFA, OXYCODONE, ATROPINE, LOMOTIL. MEDICATIONS: Lipitor, amlodipine, Tylenol, Protonix. REVIEW OF SYSTEMS: Denies headache, chest pain, shortness of breath, abdominal pain, nausea, vomiting, diarrhea, constipation, dysuria, syncope. OBJECTIVE: VITAL SIGNS: Temperature 36.9, pulse 50, respirations 20, blood pressure 132/58, O2 sat 98% on room air. GENERAL: She is awake and alert, in no distress. LUNGS: Clear. HEART: Regular. ABDOMEN: Soft, normoactive bowel sounds. EXTREMITIES: There is 1+ edema of the right arm. It is tender. There is some faint erythema. LABORATORY DATA: Doppler ultrasound of the right arm was negative. White count [facility] [address] [place] [address] HISTORY AND PHYSICAL Name: RAE DAMON Room #: 404-P ADM IN M.R.#: [id number] Admission: 09/29/19 Attend Phys: Judi Barr Discharge: Date of : 32 Report #: [id number] is normal, hemoglobin is up to 10. Chemistry is negative. ASSESSMENT: 1. Cellulitis of the right upper extremity. 2. Hypertension. 3. Microcytic anemia. 4. Recent diagnosis of gastric ulcer. PLAN: I will continue with IV antibiotics. Once her pain and swelling have diminished, she can be discharged home with oral Keflex. Her hemoglobin is improved and she remains on proton pump inhibitor for recent diagnosis of gastric ulcer. By: [id number] Anthony Chang MD /nt
--- NOTE | ~2019-09-29 | D ---
[facility] [place] [address] DISCHARGE SUMMARY Name: RAE DAMON Room #: 404-P [facility] IN M.R.#: [id number] Admission: 09/29/19 Attend Phys: Judi Barr Discharge: 10/02/19 Date of : 32 Report #: [id number] THIS REPORT FOR: //name// CC: Tremayne Patino DATE OF SERVICE: 10/02/2019 ATTENDING PHYSICIAN: Dr. Tremayne Patino. CHIEF COMPLAINT: Right arm swelling. HISTORY OF PRESENT ILLNESS: The patient is an 89-year-old lady who was recently hospitalized with anemia and possible GI bleed. The patient did receive blood transfusion and on returning home, she noticed swelling of the right upper extremity and redness and pain. The patient was admitted for right arm cellulitis and started on IV antibiotics. The patient received IV antibiotics for 48 hours with which her symptoms improved and the swelling was still persisting, but the redness had gotten better. The patient remained medically stable and was discharged to home. The IV antibiotics were stopped and started on oral Keflex 3 times a day for 7 days. The patient is being discharged to home and advised to follow up with Dr. Tremayne Patino in a week's time. FINAL DIAGNOSES: 1. Right upper extremity cellulitis. 2. Right arm swelling. 3. Hypertension. 4. Anemia. DISCHARGE MEDICATIONS: Amlodipine 5 mg daily, Protonix 40 mg daily and Keflex 500 mg 3 times a day for 7 days. By: [id number] Vince Cornejo MD /pro
[2019-09-29 16:04] VITALS: BP 166/63
[~2019-09-29 16:04] MED LIST changes: +PANTOPRAZOLE SO40 M1 PO
[2019-09-29 18:34] LABS: HEMATOCRIT 33.4 % (37.0-47.0); HEMOGLOBIN 10.3 gm/dL (12.0-15.0); MCH 23.6 pg (26.0-34.0); MCHC 30.7 g/dL (28.0-37.0); MCV 76.8 fL (80.0-100.0); PLATELET COUNT 341 thou/uL (150-400); RBC 4.35 mil/uL (4.20-5.00); RDW 24.3 % (10.5-14.5); WBC 8.8 thou/uL (4.0-11.0)
[2019-09-29 18:44] LABS: CALCIUM 9.6 mg/dL (8.5-10.1); CREATININE 0.8 mg/dL (0.6-1.0); POTASSIUM 3.6 mmol/L (3.5-5.1)
[2019-09-29 19:27] LABS: ABSOLUTE NEUTROPHILS 7.5 thou/uL (1.4-8.2)
[2019-09-29 19:28] VITALS: BP 166/63
[2019-09-29 19:29] LABS: ANISOCYTOSIS 1+
[2019-09-29 20:40] VITALS: BP 166/63
[2019-09-29 21:35] VITALS: BP 134/54
--- NOTE | 2019-09-29 23:49 | NUR ---
Pt arrived on unit from ED via cart @2044 accompanied by staff/spouse. Pt is A/OX4, VSS. Pt is up with assist. Continent of B&B. Pt's right forearm swollen,red,tender and warm to touch. C/o mild pain and declines need for pain meds at this time. contacted for med orders and implemented. Fall precautions implemented, pt by the nurses station. Resting quietly at this time,will continue to monitor pt.
[2019-09-30 07:15] VITALS: BP 132/58
[2019-09-30 14:30] VITALS: BP 151/60
--- NOTE | 2019-09-30 14:40 | NUR ---
INITIAL ASSESSMENT: Received consult for discharge planning. SW reviewed chart and spoke with nursing. Pt was admitted from home due to right arm cellulitis. SW met with pt at bedside. Introduced role of SW. Pt is alert/orientated x 4. Pt lives at home with her . No steps to enter the home or inside the home.Prior to admission, pt was independent with ADLs. Pt does have a walker and wc at home. Pt has used [facility] home health in the past and has been to [facility]. Pt's PCP is Dr. Jose G Patino. Pt's plan is to return home when medically stable. SW is following to assist as needed with discharge planning.
[2019-09-30 19:33] VITALS: BP 131/63
--- NOTE | 2019-10-01 04:38 | NUR ---
PATIENT ALERT AND ORIENTED X2-3. COOPERATIVE WITH CARE. REQUESTED TO USE BEDPAN DURING THE NIGHT AND VOIDED ONLY. GIVEN TYLENOL X1 AND SLEPT THROUGHOUT THE NIGHT. IVPB INFUSED W/O COMPLICATION. RESTING QUIETLY, WILL MONITOR.
[2019-10-01 07:10] VITALS: BP 166/67
[2019-10-01 19:11] VITALS: BP 132/63
--- NOTE | 2019-10-01 19:43 | NUR ---
ASSUMED CARE OF PATIENT AT 0715, PATIENT ALERT AND ORIENTED X 2-3. PATIENT DENIES PAIN THIS SHIFT. PATIENT HAS SWELLING TO RIGHT ARM, AND REDNESS NOTED BUT IMPROVING. PATIENT HAS LEFT FOREARM IV IN PLACE, RECEIVED 1 IV ANTIBIOTIC THIS SHIFT. PATIENT REFUSED BREAKFAST, BUT ATE 50% OF LUNCH AND DINNER. PATIENT UP WITH ASSIST X 1 TO BSC. PATIENT MAY DISCHARGE TO HOME TOMORROW. WILL CONTINUE TO MONITOR.
[2019-10-02 08:02] VITALS: BP 160/93
[2019-10-02] MEDS ORDERED: NORVASC5 MG PO (09:37)
[2019-10-02] MEDS ORDERED: PROTONIX40 M1 PO (09:37)
[2019-10-02] MEDS ORDERED: ACETAMINOPHEN325 M1 PO (09:37)
[2019-10-02] MEDS ORDERED: LIPITOR40 MG PO (09:37)
[2019-10-02 09:46] VITALS: BP 134/60
--- NOTE | 2019-10-02 09:56 | NUR ---
PT IS AOX4, VSS, PAIN CONTROLLED WITH PAIN ANALGESIC. PT'S BELONGINGS WERE PACKED AND SENT HOME WITH PT. PT TRANSFERRED TO CAR WITH AND STAFF SAFELY. IV DISCONTINE PER DR LAND.
== END 2019-10-02 11:00 | disposition home or self-care (01) | DRG 603 ==
LOC: ER 16:04 → 4N 19:28 → EROBS 19:28 → 4N 20:40
PROVIDERS: Emergency Medicine; ADMIT Internal Medicine
DX: L03.113 Cellulitis of right upper limb (principal); I50.9 Heart failure, unspecified; K21.9 Gastro-esophageal reflux disease without esophagitis; Z96.652 Presence of left artificial knee joint; M19.90 Unspecified osteoarthritis, unspecified site; G89.29 Other chronic pain; M54.9 Dorsalgia, unspecified; F32.9 Major depressive disorder, single episode, unspecified; D50.9 Iron deficiency anemia, unspecified; F41.9 Anxiety disorder, unspecified; Z96.612 Presence of left artificial shoulder joint; I11.0 Hypertensive heart disease with heart failure; Z86.73 Personal history of transient ischemic attack (TIA), and cerebral infarction without residual deficits; Z90.710 Acquired absence of both cervix and uterus; Z98.42 Cataract extraction status, left eye; Z87.442 Personal history of urinary calculi; Z88.6 Allergy status to analgesic agent; Z88.2 Allergy status to sulfonamides; Z88.8 Allergy status to other drugs, medicaments and biological substances; Z79.899 Other long term (current) drug therapy
CPT/HCPCS: 10091

== ENCOUNTER 2020-07-31 10:10 | Emergency (ER) | payer OTHER ==
[~2020-07-31] VITALS: Ht 165.1 cm; Wt 63.5 kg
[~2020-07-31 10:10] MED LIST changes: +ACETAMINOPHEN325 M1 PO; +LIPITOR40 MG PO; +PROTONIX40 M1 PO
[2020-07-31] MEDS ORDERED: CELEXA 20 MG TA20 MG PO (10:38)
[2020-07-31] MEDS ORDERED: PREDNISONE 5 MG5 M1 PO (10:38)
[2020-07-31 11:04] LABS: ABSOLUTE NEUTROPHILS 3.9 thou/uL (1.4-8.2); BASOPHILS 0.5 % (0.0-2.0); EOSINOPHILS 1.2 % (0.0-3.0); HEMATOCRIT 41.4 % (37.0-47.0); HEMOGLOBIN 13.7 gm/dL (12.0-15.0); LYMPHOCYTES 21.5 % (24.0-44.0); MCH 32.4 pg (26.0-34.0); MCV 98.2 fL (80.0-100.0); PLATELET COUNT 251 thou/uL (150-400); POLYS 64.8 % (36.0-66.0); RBC 4.21 mil/uL (4.20-5.00); RDW 14.9 % (10.5-14.5); WBC 5.9 thou/uL (4.0-11.0)
[2020-07-31 11:05] LABS: ANION GAP 12 mmol/L (7-16); BUN 11 mg/dL (7-18); CALCIUM 8.9 mg/dL (8.5-10.1); CHLORIDE 105 mmol/L (98-107); CO2 23 mmol/L (21-32); CREATININE 0.7 mg/dL (0.6-1.0); GLUCOSE 106 mg/dL (74-106); POTASSIUM 4.3 mmol/L (3.5-5.1); SODIUM 140 mmol/L (136-145)
[2020-07-31 11:15] LABS: ALBUMIN 3.3 g/dL (3.4-5.0); SGOT 17 U/L (15-37); SGPT 18 U/L (30-65); TOTAL BILIRUBIN 0.7 mg/dL (0.2-1.0); TOTAL PROTEIN 6.6 g/dL (6.4-8.2); TROPONIN-I <0.06 ng/mL (<0.06)
[2020-07-31] MEDS ORDERED: PREDNISONE 20 M20 M1 PO (14:22)
[2020-07-31] MEDS ORDERED: ZPAK PO (14:22)
[2020-07-31 15:18] VITALS: BP 176/76
--- NOTE | 2020-07-31 15:54 | EKG ---
[facility] [place] [address] ELECTROCARDIOGRAM REPORT Name: RAE DAMON Room #: DEP [facility]#: [id number] Admission: 07/31/20 Attend Phys: Discharge: 07/31/20 Date of : 32 Report #: [id number] THIS REPORT FOR: cc: Tremayne Patino MD, Christopher B. MD Santiago, Patrick MD [facility] ~ THIS REPORT FOR: //name// [facility] ED Test Date: 2020-07-31 Test Time: 10:17:51 Pat Name: RAE DAMON Department: Room: Gender: F Filling Station Laborer: DANNY : 1930 Requested By: Gen Valderrama Order Number: [id number] MD: Juan M Gonzalez Measurements Intervals [place] Rate: 71 P: 11 CO: 151 QRS: -26 QRSD: 94 T: 50 QT: 412 QTc: 448 Interpretive Statements Sinus rhythm Abnormal R-wave progression, late transition Probable left ventricular hypertrophy Compared to ECG 11/29/2016 09:00:20 No significant changes Electronically Signed On 07-31-2020 15:54:02 CDT by Juan M Gonzalez [email or web address] <ELECTRONICALLY SIGNED> By: Juan M Gonzalez MD, FACC 07/31/20 1554 [id number] Juan M Gonzalez MD, FAC /EPI
== END 2020-07-31 15:19 | disposition home or self-care (01) ==
LOC: ER 10:10
PROVIDERS: Emergency Medicine
DX: R07.9 Chest pain, unspecified (principal); J20.9 Acute bronchitis, unspecified; I11.0 Hypertensive heart disease with heart failure; I50.9 Heart failure, unspecified; K21.9 Gastro-esophageal reflux disease without esophagitis; G89.29 Other chronic pain; M54.9 Dorsalgia, unspecified; Z90.710 Acquired absence of both cervix and uterus; Z90.89 Acquired absence of other organs; Z79.899 Other long term (current) drug therapy; Z88.5 Allergy status to narcotic agent; Z88.8 Allergy status to other drugs, medicaments and biological substances; Z88.2 Allergy status to sulfonamides

== ENCOUNTER → 2020-11-16 | Outpatient (CLI) | payer OTHER ==
[~2020-11-16] MED LIST changes: +PREDNISONE 20 M20 M1 PO; +PREDNISONE 5 MG5 M1 PO; +ZPAK PO
== END ==
LOC: LAB 13:11
PROVIDERS: ATTEND Internal Medicine
DX: R05 Cough (principal); Z20.822 Contact with and (suspected) exposure to COVID-19